=== PATIENT | female | born 1950 | race Caucasian/White ===

== ENCOUNTER → 2020-09-21 14:59 | Outpatient (CLI) | payer MEDICARE, SELFPAY ==
--- NOTE | 2020-09-21 16:17 | PET_ITS ---
EXAMINATION: FDG PET-CT INDICATIONS: A 69-year-old female with reported history of carcinoma of the breast presenting for apparent initial staging examination. COMPARISON EXAMINATION: None available INDEX LESION SIZE SUV INTERPRETATION Left breast 20.6-mm (frame 157) 6.2 Fulfills quantitative criteria for viable neoplasm Left acetabulum 9.1 Fulfills quantitative criteria for viable neoplasm Bilateral upper lung zones (n=2) 5.1-mm (largest) (frame 195) 0.9 (max) Quantitative criteria for viable neoplasm are not fulfilled, sequential radiologic investigation recommended TECHNIQUE: Following the intravenous administration of 12.65 mCi of F-18 deoxyglucose via the left antecubital fossa, multiplanar image acquisitions of the neck, chest, abdomen and pelvis to level of mid thigh, obtained at one hour post radiopharmaceutical administration contemporaneously interpreted with the current CT of the neck, chest, abdomen and pelvis, to level of mid thigh, dated 09/21/20 via coregistration reveals: BLOOD GLUCOSE LEVEL:?? 91 mg/dl?HEIGHT:?67 inches?WEIGHT: 180 lbs. FINDINGS: 1. A distinct nodular focus of increased glucose metabolism is defined in the inferior outer quadrant of the left breast. The calculated maximal standard uptake value is 6.2. The maximal axial diameter of the corresponding soft tissue breast nodule on review of CT of the chest dated 09/21/20 is 20.6-mm (transverse). 2. An increase in radiopharmaceutical distribution is demonstrated in the left acetabulum rendering a calculated maximal standard uptake value of 9.1. Corresponding primarily lytic change is noted in the analogous location on review of CT of the pelvis dated 09/21/20. 3. Barely discernible increased FDG concentration is observed in the right upper posterior lung-right upper lobe adjacent to the major fissure, left upper lung-left upper lobe generating a calculated maximal standard uptake value of 0.9. The maximal axial diameter of the non-calcified density on review of CT of the chest dated 09/21/20 is 5.1-mm (transverse). 4. Normal physiologic distribution of the radiopharmaceutical is apparent in the hepatic (3.3) and splenic parenchyma, both renal units, bladder and visualized intestinal tract. The visualized portion of the cerebral cortical-subcortical structures demonstrate symmetric and preserved glucose metabolism. Diffuse radiopharmaceutical concentration is noted in all four quadrants of the abdomen and pelvis. An increase in glucose concentration is observed in the glenohumeral compartment of the right shoulder most consistent with degenerative arthritis. Prominent uptake is noted in the left, and to a lesser extent, right pharyngeal mucosal space associated with the pharyngeal constrictor musculature most consistent with muscle tension artifact. Pertinent CT findings are as follows: CHEST: There is atherosclerotic calcification defined in the thoracic aorta without evidence of dilatation-aneurysm formation. Coronary arterial calcification is observed. Bilateral subcentimeter axillary soft tissue densities with fatty hilus are non-glucose avid. There are no additional parenchymal densities-nodules defined in the right and left hemithorax with discernible quantitatively significant increased FDG uptake. There is evidence of previous median sternotomy. ABDOMEN AND PELVIS: There is atherosclerotic calcification defined in the abdominal aorta without evidence of dilatation-aneurysm formation. Pelvic arterial calcification is demonstrated. Colonic diverticulosis is encountered without evidence of diverticulitis. Right and left inguinal soft tissue densities with fatty hilus formation reveal no evidence of increased tracer uptake. SKELETAL: Degenerative changes are noted in the cervical, thoracic and lumbar spine without evidence of increased radiopharmaceutical concentration. PET/PET/CT Tumor Base -Thigh Init IMPRESSION: 1. ABNORMAL EXAMINATION INDICATIVE OF MALIGNANT VIABLE NEOPLASM. 2. Increased glucose concentration demonstrated in the left breast fulfills quantitative criteria for viable neoplasm. 3. Enhanced tracer uptake limited to the left acetabulum fulfills quantitative criteria for viable osseous metastatic disease. (Eugenio et al, Clinical Nuclear Medicine, 29:161, 2004). 4. Subtle increased tracer uptake noted in the bilateral upper lung araujo (right-left upper lobes) do not fulfill quantitative criteria for viable neoplasm. (Roberts et al, Annals of Internal Medicine, 138:724, 2003). 5. Metabolic and/or anatomic stability may be ensured in the bilateral upper lung araujo with repeat FDG PET study and/or CT of the thorax in 9-12 weeks in the setting of known breast carcinoma. (Xiu, Journal of Nuclear Medicine 45:88, P2004 Mario, Seminars in Thoracic and Cardiovascular Surgery 14:292, 2002). Electronic Signature Nikko Link D.O. Accurate Quantification of SUVs for this report are calculated using the exclusive [employer], ([place] Patent No. [id number]). Standardization and correction of the FDG SUV metric exclusively available with [employer] intellectual property, allow for vendor non-specific objective quantitative sequential FDG PET-CT comparison and otherwise unobtainable optimization of the sensitivity and specificity of the examination. Electronically Signed: Nikko Link DO at 15:16 EDT Tel , Service support ,
== END ==
PROVIDERS: Referring Provider Surgery; Visit Provider Surgery
DX: C50.812 Malignant neoplasm of overlapping sites of left female breast (principal)
CPT/HCPCS: 78815; A9552